=== PATIENT | female | born 2005 | race American Indian/Alaskan Native ===

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

== ENCOUNTER 2023-02-20 09:31 | Inpatient (IN) | payer MEDICAID ==
[2023-02-20] MEDS ORDERED: Misoprostol 400 MCG (4 X 100 MCG TAB) RECTAL PRN (10:52)
[2023-02-20] MEDS ORDERED: Lactated Ringers 1,000 ML IV ONE (10:52)
[2023-02-20] MEDS ORDERED: Carboprost Tromethamine 250 MCG/1 ML Amp IM PRN (10:52)
[2023-02-20] MEDS ORDERED: Ondansetron 4 MG/2 ML SDV IVPUSH PRN (10:52)
[2023-02-20] MEDS ORDERED: Tranexamic Acid 1,000 MG in Sodium Chloride 0.9% 100 ML IV PRN (10:52)
[2023-02-20] MEDS ORDERED: Lidocaine 1% 30 ML SDV INJECT PRN (10:52)
[2023-02-20] MEDS ORDERED: Penicillin G Potassium 5 MILLUNITS in Sodium Chloride 0.9% 100 ML IV STA (10:52)
[2023-02-20] MEDS ORDERED: Sodium Chloride 0.9% 10 ML Syringe FLUSH PRN (10:52)
[2023-02-20] MEDS ORDERED: Methylergonovine 0.2 MG/1 ML Amp IM PRN (10:52)
[2023-02-20] MEDS ORDERED: Oxytocin/Normal Saline 30 UNIT/500 ML BAG IV SCH ×2 (11:00→17:15)
[2023-02-20] MEDS ORDERED: Penicillin G Potassium 3 MILLUNITS in Sodium Chloride 0.9% 100 ML IV SCH (15:00)
[2023-02-20 15:12] LABS: WHITE BLOOD CELL COUNT,WBC 11.3 10^3/uL (5.0-10.0)
[2023-02-20 15:13] LABS: HEMATOCRIT 37.7 % (37.0-47.0); HEMOGLOBIN 13.1 g/dL (12.0-16.0); MEAN CORPUSCULAR HEMOGLOBIN 31.5 pg (27.0-34.0); MEAN CORPUSCULAR HGB CONC 34.7 g/dL (33.0-35.0); MEAN CORPUSCULAR VOLUME 90.6 fL (80-100); RED BLOOD CELL COUNT 4.16 10^6/uL (4.2-5.4)
[2023-02-20] MEDS: Lactated Ringers 1,000 ML IV SCH ×2 (17:19→21:04)
[2023-02-20] MEDS: Penicillin G Potassium 3 MILLUNITS in Sodium Chloride 0.9% 100 ML IV SCH ×2 (19:20→23:21)
[2023-02-20] MEDS ORDERED: fentaNYL 100 MCG/2 ML SDV ONE (21:00)
[2023-02-20] MEDS ORDERED: Bupivacaine 0.25% 10 ML SDV ONE (21:01)
[2023-02-20] MEDS: Ropivacaine 200 MG in Premix Bag 1 BAG EPIDUR SCH (21:16)
[2023-02-20] MEDS ORDERED: Phenylephrine HCl In 0.9% NaCl 1 MG/10 ML Syringe IVPUSH PRN (21:23)
[2023-02-20] MEDS ORDERED: ePHEDrine 50 MG/ML SDV IVPUSH PRN (21:23)
[2023-02-21] MEDS: Penicillin G Potassium 3 MILLUNITS in Sodium Chloride 0.9% 100 ML IV SCH ×3 (03:12→13:08)
[2023-02-21] MEDS: Lactated Ringers 1,000 ML IV SCH (03:13)
[2023-02-21] MEDS: Ropivacaine 200 MG in Premix Bag 1 BAG EPIDUR SCH (05:17)
[2023-02-21] MEDS ORDERED: Sodium Chloride 0.9% 10 ML Syringe FLUSH PRN (09:53)
[2023-02-21] MEDS ORDERED: Oxytocin 10 Units/1 ML SDV IM PRN (09:53)
[2023-02-21] MEDS ORDERED: Benzocaine/Menthol 20%-0.5% Spray 78 GM Cannister TOP PRN (09:53)
[2023-02-21] MEDS ORDERED: Simethicone 80 MG Tab.Chew PO PRN (09:53)
[2023-02-21] MEDS: Docusate Sodium 100 MG Cap PO PRN (12:44)
[2023-02-21] MEDS: Ibuprofen 800 MG Tab PO PRN ×2 (12:44→20:56)
[2023-02-21] MEDS ORDERED: Zolpidem 5 MG Tab PO PRN (21:00)
[2023-02-22] MEDS: Ibuprofen 800 MG Tab PO PRN ×3 (05:59→21:03)
[2023-02-22 06:22] LABS: HEMATOCRIT 31.4 % (37.0-47.0); HEMOGLOBIN 11.4 g/dL (12.0-16.0); MEAN CORPUSCULAR HEMOGLOBIN 33.5 pg (27.0-34.0); MEAN CORPUSCULAR HGB CONC 36.3 g/dL (33.0-35.0); MEAN CORPUSCULAR VOLUME 92.4 fL (80-100); RED BLOOD CELL COUNT 3.4 10^6/uL (4.2-5.4); WHITE BLOOD CELL COUNT,WBC 15.7 10^3/uL (5.0-10.0)
[2023-02-22] MEDS: Prenatal Multivitamin with Calcium/Folic Acid/Iron Tab PO SCH (09:24)
[2023-02-22] MEDS: Docusate Sodium 100 MG Cap PO PRN ×2 (09:24→21:03)
[2023-02-22] MEDS: Acetaminophen 325 MG Tab PO PRN (12:51)
[2023-02-23] MEDS: Acetaminophen 325 MG Tab PO PRN (03:50)
[2023-02-23] MEDS: Prenatal Multivitamin with Calcium/Folic Acid/Iron Tab PO SCH (08:19)
[2023-02-23] MEDS: Docusate Sodium 100 MG Cap PO PRN (08:19)
[2023-02-23] MEDS: Ibuprofen 800 MG Tab PO PRN (08:19)
[2023-02-23 10:45] VITALS: BP 118/83; PULSE 72
== END 2023-02-23 10:35 | disposition home or self-care (01) | DRG 806 ==
LOC: DL.OB 09:31 → OBSVTOIN 02-21 09:31
PROVIDERS: ADMIT Family Medicine; ATTEND Family Medicine
PROC: 10D07Z6 Extraction of Products of Conception, Vacuum, Via Natural or Artificial Opening (ICD-10-PCS; principal; 2023-02-21)
PROC: 10907ZC Drainage of Amniotic Fluid, Therapeutic from Products of Conception, Via Natural or Artificial Opening (ICD-10-PCS; 2023-02-21)
PROC: 10H07YZ Insertion of Other Device into Products of Conception, Via Natural or Artificial Opening (ICD-10-PCS; 2023-02-21)
PROC: 3E0P7VZ Introduction of Hormone into Female Reproductive, Via Natural or Artificial Opening (ICD-10-PCS; 2023-02-21)
PROC: 0UQG7ZZ Repair Vagina, Via Natural or Artificial Opening (ICD-10-PCS; 2023-02-21)
DX: O34.33 Maternal care for cervical incompetence, third trimester (principal); O71.4 Obstetric high vaginal laceration alone; Z37.0 Single live birth; O99.824 Streptococcus B carrier state complicating childbirth; O62.2 Other uterine inertia; O77.0 Labor and delivery complicated by meconium in amniotic fluid; O69.81X0 Labor and delivery complicated by cord around neck, without compression, not applicable or unspecified; Z3A.37 37 weeks gestation of pregnancy
CPT/HCPCS: 01967; 36415; 51701; 51702; 59409; 85027; A9270-GY; J2405; J2540; J2590; J2795; J3490; J7120

== ENCOUNTER 2024-09-22 | Emergency (ER) | payer MEDICAID ==
[2024-09-22 00:18] VITALS: BP 128/63; PULSE 126
[2024-09-22] MEDS: Bacitracin Oint 1 GM U/D Packet TOP ONE (00:28)
[2024-09-22] MEDS: Acetaminophen 325 MG Tab PO ONE (00:28)
[2024-09-22] MEDS: cefTRIAXone 1 GM, Lidocaine 1% 2.1 ML IM ONE (00:38)
== END 2024-09-22 01:06 | disposition home or self-care (01) ==
LOC: DL.ED
DX: S21.252A Open bite of left back wall of thorax without penetration into thoracic cavity, initial encounter (principal); F17.210 Nicotine dependence, cigarettes, uncomplicated; Z90.89 Acquired absence of other organs; Z79.899 Other long term (current) drug therapy; Y04.0XXA Assault by unarmed brawl or fight, initial encounter
CPT/HCPCS: 96372; 99282; 99283; A9270-GY; J0696; J3490

== ENCOUNTER 2024-12-18 23:27 | Emergency (ER) | payer BC, MEDICAID ==
[2024-12-18 23:54] LABS: BASOPHILS PERCENT AUTO 0.5 % (0.0-1.0); EOSINOPHILS PERCENT AUTO 0.9 % (1.0-3.0); HEMATOCRIT 36.3 % (37.0-47.0); HEMOGLOBIN 11.3 g/dL (12.0-16.0); MEAN CORPUSCULAR HEMOGLOBIN 24.9 pg (27.0-34.0); MEAN CORPUSCULAR HGB CONC 31.1 g/dL (33.0-35.0); MEAN CORPUSCULAR VOLUME 80.1 fL (80-100); NEUTROPHILS PERCENT AUTO 65.6 % (42.2-75.2); PLATELET COUNT,PLT 330 10^3/uL (150-450); RED BLOOD CELL COUNT 4.53 10^6/uL (4.2-5.4); WHITE BLOOD CELL COUNT,WBC 10.9 10^3/uL (5.0-10.0)
[2024-12-18] MEDS: Iopamidol 612 MG/ML 100 ML Bottle IVPUSH ONE (23:59)
[2024-12-19] MEDS: Ondansetron 4 MG/2 ML SDV IVPUSH ONE
[2024-12-19] MEDS: Ketorolac 30 MG/ML SDV IVPUSH ONE (00:02)
[2024-12-19] MEDS: Sodium Chloride 0.9% 1,000 ML IV ONE (00:04)
[2024-12-19 00:11] LABS: HCG QUALITATIVE,SERUM NEGATIVE (NEGATIVE)
[2024-12-19 00:16] LABS: ALANINE AMINOTRANSFERASE,ALT 37 U/L (14-59); ALBUMIN 3.4 g/dL (3.4-5.0); ALKALINE PHOSPHATASE 134 U/L (46-116); ANION GAP 11.6 mEq/L (7-13); ASPARTATE AMNIOTRANSFERASE,AST 39 U/L (15-37); BILIRUBIN TOTAL 0.3 mg/dL (0.2-1.0); BLOOD UREA NITROGEN,BUN 7 mg/dL (7-18); BUN/CREATININE RATIO 6.4 (No establ ref range); CALCIUM 8.5 mg/dL (8.5-10.1); CARBON DIOXIDE,CO2 26 mmol/L (21-32); CHLORIDE,CL 106 mmol/L (98-107); EST CRCL DRUG DOSING (CG) 66.92 mL/min; GLUCOSE RANDOM 98 mg/dL (70-99); LIPASE 51 U/L (16-77); POTASSIUM,K 3.6 mmol/L (3.5-5.1); PROTEIN TOTAL,TP 6.8 g/dL (6.4-8.2); SODIUM,NA 140 mmol/L (136-145)
[2024-12-19 00:21] LABS: ESTIMATED GFR 73 mL/min (>=60); ETHANOL BLOOD MEDICAL < 3 mg/dL (0)
[2024-12-19 01:03] LABS: APPEARANCE,URINE CLEAR (CLEAR); BILIRUBIN,URINE NEGATIVE (NEGATIVE); COLOR,URINE YELLOW (YELLOW); GLUCOSE,URINE NEGATIVE (NEGATIVE); KETONES,URINE NEGATIVE (NEGATIVE); LEUKOCYTE ESTERASE,URINE NEGATIVE (NEGATIVE); NITRITE,URINE NEGATIVE (NEGATIVE); OCCULT BLOOD,URINE NEGATIVE (NEGATIVE); PROTEIN,URINE NEGATIVE (NEGATIVE); UROBILINOGEN,URINE 0.2 mg/dL (0.2-1.0)
[2024-12-19 01:07] LABS: AMPHETAMINES,URINE NEGATIVE (NEGATIVE); BARBITURATES,URINE NEGATIVE (NEGATIVE); BENZODIAZEPINE,URINE NEGATIVE (NEGATIVE); MDMA (ECSTASY), URINE NEGATIVE (NEGATIVE); METHADONE,URINE NEGATIVE (NEGATIVE); METHAMPHETAMINES,URINE POSITIVE (NEGATIVE); OPIATES,URINE NEGATIVE (NEGATIVE); OXYCODONE,URINE NEGATIVE (NEGATIVE); PHENCYCLIDINE,URINE NEGATIVE (NEGATIVE); TCA,URINE NEGATIVE (NEGATIVE)
[2024-12-19 01:53] VITALS: PULSE 80
[2024-12-19 01:54] VITALS: BP 114/90
== END 2024-12-19 01:34 | disposition home or self-care (01) ==
LOC: DL.ED 23:27
DX: T74.11XA Adult physical abuse, confirmed, initial encounter (principal); Z79.899 Other long term (current) drug therapy; Y04.1XXA Assault by human bite, initial encounter
CPT/HCPCS: 36415; 70450; 70486; 70491; 71260; 72125; 72128; 74177; 80053; 80305; 80307; 81003; 83690; 84703; 85025; 96361; 96374; 96375; 99283; 99285; J1885; J2405; J7030; Q9967